=== PATIENT | female | born 1990 | race Caucasian/White ===

== ENCOUNTER 2024-02-02 10:45 | Outpatient (CLI) | payer BC, SELFPAY ==
[2024-02-02 11:39] LABS: Alanine Aminotransferase 21 U/L (0-33); Albumin Level 4.5 g/dL (3.5-5.2); Alkaline Phosphatase 45 U/L (35-105); Anion Gap 15.3 (5-19); Aspartate Amino Transferase 17 U/L (0-32); Blood Urea Nitrogen 11 mg/dL (6-20); Calcium 9.1 mg/dL (8.5-10.5); Carbon Dioxide 25 mmol/L (22-29); Chloride 105 mmol/L (98-107); Free T4 Free Thyroxine 1.07 ng/dL (0.82-1.77); Globulin 2.4 g/dL (1.3-4.6); Glucose 86 mg/dL (65-115); Osmolality Calculated 291 mOsm/kg (285-295); Potassium 4.3 mmol/L (3.5-5.1); Sodium 141 mmol/L (136-145); Thyroid Stimulating Hormone 2.49 uIU/mL (0.27-4.20); Total Bilirubin 0.3 mg/dL (0.15-1.2); Total Protein 6.9 g/dL (6.6-8.7)
[2024-02-03 06:20] LABS: T3 Total 100 ng/dL (76-181)
== END 2024-02-02 10:46 | disposition home or self-care (01) ==
LOC: LAB 10:46
PROVIDERS: PCP Emergency Medicine; Visit Provider Internal Medicine
DX: E04.2 Nontoxic multinodular goiter (principal)
CPT/HCPCS: 36415; 80053; 84439; 84443; 84480